=== PATIENT | female | born 1965 | race African-American/Black ===

== ENCOUNTER 2020-09-21 18:11 | Observation (INO) ==
[2020-09-21] MEDS ORDERED: SODIUM CHLORIDE 0.9% 1,000 ML IV STA (18:41)
[2020-09-21] MEDS ORDERED: ONDANSETRON 4 MG/2 ML VIAL IV STA (18:42)
[2020-09-21 19:09] LABS: Basophils % 0.5 % (0.0-0.8); Eosinophils % 1.1 % (0.00-10.9); Hematocrit 30.6 VOL% (35.7-47.0); Hemoglobin 9.8 GM/DL (12.0-16.0); Immature Granulocytes % 0.3 %; Immature Granulocytes Absolute 0.01 #; Lymphocytes # 1.6 10*3/uL (1.4-4.0); Lymphocytes % 44.5 % (21.3-54.2); Mean Platelet Volume 11.3 FL (9.6-12.0); Monocytes % 12.6 % (1.7-12.7); NRBC # 0.03 10*3/uL; Platelet Count 156 T/CUMM (130-400); White Blood Count 3.7 T/CUMM (4-12)
[2020-09-21 19:28] LABS: Albumin 3.1 G/DL (3.4-5.0); Bilirubin,Total 1.2 MG/DL (0.2-1.0); Calcium 9.4 MG/DL (8.5-10.1); Osmolality,Calculated 266.2 MOS/KG (273-304); Total Protein 6.6 G/DL (6.4-8.2)
[2020-09-21 19:31] LABS: Potassium 2.2 MMOL/L (3.5-5.1)
[2020-09-21] MEDS ORDERED: PROMETHAZINE INJ 25 MG in SODIUM CHLORIDE 0.9% 50 ML IV STA (19:37)
[2020-09-21] MEDS ORDERED: PROMETHAZINE 25 MG/1 ML VIAL ONE (19:39)
[2020-09-21 19:55] LABS: Anisocytosis 1+; Microcytosis Slight
[2020-09-21 19:56] LABS: Acanthocytes Few; Burr Cells Few; Ovalocytes Few; Platelet Estimate Normal
[2020-09-21] MEDS ORDERED: PROMETHAZINE 25 MG/1 ML VIAL IM PRN (20:09)
[2020-09-21] MEDS ORDERED: NICOTINE 21 MG/24 HR PATCH TRANSDERM PRN (20:09)
[2020-09-21] MEDS ORDERED: POTASSIUM CHLORIDE 20 MEQ TABLET PO STA (20:09)
[2020-09-21] MEDS ORDERED: guaiFENesin/DM ER 600-30 MG TABLET PO PRN (20:09)
[2020-09-21] MEDS ORDERED: GLUCAGON 1 MG VIAL IM PRN (20:09)
[2020-09-21] MEDS ORDERED: ONDANSETRON 4 MG/2 ML VIAL IV PRN (20:09)
[2020-09-21] MEDS ORDERED: DEXTROSE 50% 25 GM/50 ML VIAL IV PRN (20:09)
[2020-09-21] MEDS ORDERED: diphenhydrAMINE CAP 25 MG CAPSULE PO PRN (20:09)
[2020-09-21] MEDS ORDERED: ACETAMINOPHEN 325 MG TABLET PO PRN (20:09)
[2020-09-21] MEDS ORDERED: traZODone 50 MG TABLET PO PRN (20:09)
[2020-09-21] MEDS ORDERED: MORPHINE 4 MG/1 ML VIAL IV PRN (20:09)
[2020-09-21] MEDS ORDERED: hydrALAZINE 20 MG/1 ML VIAL IV PRN (20:09)
[2020-09-21] MEDS: SODIUM CHLOR 0.9% KCL 40 MEQ 40 MEQ/1,000 ML BAG IV SCH (23:03)
[2020-09-22 04:57] LABS: Calcium 8.2 MG/DL (8.5-10.1); Osmolality,Calculated 273.5 MOS/KG (273-304); Potassium 2.9 MMOL/L (3.5-5.1)
[2020-09-22] MEDS ORDERED: POTASSIUM CHLORIDE RIDER 10 MEQ in PREMIX 1 EACH IV PRN (08:37)
[2020-09-22 08:58] LABS: Calcium 8.4 MG/DL (8.5-10.1); Osmolality,Calculated 276.4 MOS/KG (273-304); Potassium 3.1 MMOL/L (3.5-5.1)
[2020-09-22] MEDS ORDERED: MAGNESIUM SULF RIDER 4 GM in PREMIX 1 EACH IV PRN (09:03)
[2020-09-22] MEDS ORDERED: MAGNESIUM SULF RIDER 2 GM in PREMIX 1 EACH IV PRN (09:03)
[2020-09-22] MEDS: POTASSIUM CHLORIDE RIDER 20 MEQ in PREMIX 1 EACH IV PRN ×2 (09:56→12:46)
[2020-09-22] MEDS ORDERED: FLUCONAZOLE INJ 200 MG in PREMIX 1 EACH IV ONE (10:02)
[2020-09-22 11:01] LABS: Bilirubin,Urine Small mg/dL (Negative); Blood, Urine Negative (Negative); Glucose,Urine (UA) Negative (Negative); Ketones,Urine 80 mg/dL (Negative); Mucus,Urine Many /LPF (Occasional); Nitrite,Urine Negative (Negative); Protein,Urine 100 MG/DL; RBC,Urine 1 /HPF (0-4); Squamous Epithelial Cell,Urine Occasional /HPF (0-10); Urine Appearance Slightly Hazy (Clear); Urine Color Amber (Yellow); Urine Specific Gravity 1.021 (1.001-1.035); WBC,Urine 2 /HPF (0-6)
[2020-09-22 14:10] LABS: Calcium 8.2 MG/DL (8.5-10.1); Osmolality,Calculated 276.7 MOS/KG (273-304); Potassium 3.3 MMOL/L (3.5-5.1)
[2020-09-22] MEDS: SODIUM CHLOR 0.9% KCL 40 MEQ 40 MEQ/1,000 ML BAG IV SCH ×2 (18:24→19:53)
[2020-09-23] MEDS: SODIUM CHLOR 0.9% KCL 40 MEQ 40 MEQ/1,000 ML BAG IV SCH (04:55)
[2020-09-23 07:35] VITALS: BP 102/72
[2020-09-23] MEDS ORDERED: HEPARIN LOCK FLUSH 500 UNIT/5 ML SYRINGE IV ONE (10:35)
== END 2020-09-23 13:03 | disposition home or self-care (01) ==
LOC: N.EDINP 18:11 → N.ED 18:11 → SUATTDRO 20:09 → N.4E 21:15
PROVIDERS: ADMIT Internal Medicine; ATTEND Student in an Organized Health Care Education/Training Program

== ENCOUNTER 2020-10-14 17:24 | Observation (INO) ==
[2020-10-14] MEDS ORDERED: SODIUM CHLORIDE 0.9% 1,000 ML IV STA ×3 (18:34→19:10)
[2020-10-14 18:52] LABS: Basophils % 0.1 % (0.0-0.8); Eosinophils % 0.2 % (0.00-10.9); Hematocrit 32.6 VOL% (35.7-47.0); Immature Granulocytes % 0.6 %; Immature Granulocytes Absolute 0.05 #; Lymphocytes # 2.3 10*3/uL (1.4-4.0); Lymphocytes % 25.9 % (21.3-54.2); Mean Corpuscular HGB Conc 30.7 GM/DL (32-36); Mean Corpuscular Volume 93.9 FL (87-102); Monocytes % 10.2 % (1.7-12.7); NRBC # 0.19 10*3/uL; Platelet Count 126 T/CUMM (130-400); Red Blood Count 3.47 MC/CUMM (3.8-5.5); Red Cell Distribution Width 24.1 % (9.3-17.3); White Blood Count 8.9 T/CUMM (4-12)
[2020-10-14 18:57] LABS: Albumin 3.3 G/DL (3.4-5.0); Bilirubin,Total 1.4 MG/DL (0.2-1.0); Calcium 9.7 MG/DL (8.5-10.1); Osmolality,Calculated 306.9 MOS/KG (273-304); Total Protein 6.5 G/DL (6.4-8.2)
[2020-10-14 18:58] LABS: INR 1.2; PT Patient Result 13.5 SECS (10.5-12.0)
[2020-10-14 19:07] LABS: Potassium 2.4 MMOL/L (3.5-5.1)
[2020-10-14] MEDS ORDERED: POTASSIUM CHLORIDE 20 MEQ TABLET PO ONE (19:08)
[2020-10-14] MEDS ORDERED: POTASSIUM CHLORIDE 20 MEQ PACK PO STA (19:10)
[2020-10-14] MEDS ORDERED: POTASSIUM CHLORIDE 20 MEQ PACK ONE (19:14)
[2020-10-14] MEDS ORDERED: POTASSIUM CHLORIDE RIDER 20 MEQ in PREMIX 1 EACH IV STA (19:25)
[2020-10-14] MEDS ORDERED: DEXTROSE 50% 25 GM/50 ML VIAL IV PRN (20:22)
[2020-10-14] MEDS ORDERED: GLUCAGON 1 MG VIAL IM PRN (20:22)
[2020-10-14] MEDS ORDERED: ONDANSETRON 4 MG/2 ML VIAL IV PRN (20:22)
[2020-10-14] MEDS ORDERED: DEXTROSE 5% 1,000 ML IV SCH (20:30)
[2020-10-14 21:53] LABS: Blood, Urine Small mg/dL (Negative); Glucose,Urine (UA) Negative (Negative); Hyaline Casts,Urine 58 /LPF (0-3); Ketones,Urine 5 mg/dL (Negative); Mucus,Urine Many /LPF (Occasional); Nitrite,Urine Negative (Negative); Protein,Urine 30 MG/DL; RBC,Urine 18 /HPF (0-4); Squamous Epithelial Cell,Urine Occasional /HPF (0-10); Urine Appearance Slightly Hazy (Clear); Urine Color Amber (Yellow); Urine Specific Gravity 1.032 (1.001-1.035)
[2020-10-14 21:55] LABS: Bilirubin,Urine Small mg/dL (Negative)
[2020-10-15 05:17] LABS: Folate 2.91 NG/ML (5.38-24.0)
[2020-10-15 06:17] LABS: Basophils % 0.2 % (0.0-0.8); Eosinophils # 0.1 10*3/uL (0.0-0.87); Eosinophils % 1.2 % (0.00-10.9); Hemoglobin 8.8 GM/DL (12.0-16.0); Immature Granulocytes % 0.8 %; Immature Granulocytes Absolute 0.05 #; Lymphocytes # 2.1 10*3/uL (1.4-4.0); Lymphocytes % 31.5 % (21.3-54.2); Mean Corpuscular HGB Conc 30.3 GM/DL (32-36); Mean Corpuscular Volume 95.4 FL (87-102); Mean Platelet Volume 12.2 FL (9.6-12.0); Monocytes % 8.8 % (1.7-12.7); NRBC # 0.04 10*3/uL; Neutrophils % 57.5 % (38.7-73.9); Platelet Count 114 T/CUMM (130-400); Red Blood Count 3.04 MC/CUMM (3.8-5.5); Red Cell Distribution Width 24.5 % (9.3-17.3); White Blood Count 6.6 T/CUMM (4-12)
[2020-10-15 06:54] LABS: Anisocytosis 2+; Platelet Estimate Adequate; Poikilocytosis 1+
[2020-10-15 06:55] LABS: Macrocytosis 1+; Ovalocytes Few; Polychromasia Slight; Tear Drop Cells Few
[2020-10-15 06:56] LABS: Albumin 2.7 G/DL (3.4-5.0); Bilirubin,Total 0.9 MG/DL (0.2-1.0); Calcium 9.2 MG/DL (8.5-10.1); Osmolality,Calculated 308.6 MOS/KG (273-304); Potassium 2.8 MMOL/L (3.5-5.1); Risk Ratio 4.43; Total Protein 5.9 G/DL (6.4-8.2); VLDL CHOLESTEROL 20.8 MG/DL
[2020-10-15] MEDS ORDERED: PROMETHAZINE 25 MG/1 ML VIAL IV PRN (07:45)
[2020-10-15] MEDS: FOLIC ACID 1 MG TABLET PO SCH ×2 (09:20→21:59)
[2020-10-15] MEDS: cefTRIAXone 1,000 MG in SODIUM CHLORIDE 0.9% 100 ML IV SCH (09:20)
[2020-10-15] MEDS: PANTOPRAZOLE 40 MG TABLET PO SCH (09:20)
[2020-10-15] MEDS: MEGESTROL 400 MG/10 ML UDCUP PO SCH (09:20)
[2020-10-15] MEDS: POTASSIUM CHLORIDE INJ 20 MEQ in LACTATED RINGERS 1,000 ML IV SCH ×3 (09:27→22:05)
[2020-10-15] MEDS: POTASSIUM CHLORIDE RIDER 10 MEQ in PREMIX 1 EACH IV PRN ×5 (10:30→16:45)
[2020-10-15] MEDS ORDERED: MAGNESIUM SULF RIDER 2 GM/50 ML PREMIX IV PRN (11:08)
[2020-10-15] MEDS ORDERED: MAGNESIUM SULF RIDER 4 GM/100 ML PREMIX IV PRN (11:08)
[2020-10-15] MEDS ORDERED: LACTATED RINGERS 500 ML IV ONE (13:41)
[2020-10-16] MEDS: POTASSIUM CHLORIDE RIDER 10 MEQ in PREMIX 1 EACH IV PRN ×4 (02:36→10:12)
[2020-10-16] MEDS: POTASSIUM CHLORIDE INJ 20 MEQ in LACTATED RINGERS 1,000 ML IV SCH ×2 (02:41→10:11)
[2020-10-16 06:01] LABS: Eosinophils # 0.1 10*3/uL (0.0-0.87); Eosinophils % 1.8 % (0.00-10.9); Hematocrit 24.9 VOL% (35.7-47.0); Hemoglobin 7.6 GM/DL (12.0-16.0); Immature Granulocytes Absolute 0.06 #; Lymphocytes # 2.3 10*3/uL (1.4-4.0); Lymphocytes % 37.7 % (21.3-54.2); Mean Corpuscular HGB Conc 30.5 GM/DL (32-36); Mean Platelet Volume 12.5 FL (9.6-12.0); Monocytes % 9.4 % (1.7-12.7); NRBC # 0.06 10*3/uL; Neutrophils % 50.1 % (38.7-73.9); Platelet Count 98 T/CUMM (130-400); Red Blood Count 2.62 MC/CUMM (3.8-5.5); Red Cell Distribution Width 24.4 % (9.3-17.3); White Blood Count 6.2 T/CUMM (4-12)
[2020-10-16 06:31] LABS: Calcium 8.3 MG/DL (8.5-10.1); Osmolality,Calculated 296.3 MOS/KG (273-304); Potassium 3.3 MMOL/L (3.5-5.1)
[2020-10-16 06:33] LABS: Hypochromasia 1+; Ovalocytes Few; Target Cells Slight
[2020-10-16 06:34] LABS: Anisocytosis 1+
[2020-10-16 06:35] LABS: Platelet Estimate Decreased
[2020-10-16] MEDS: PANTOPRAZOLE 40 MG TABLET PO SCH (10:11)
[2020-10-16] MEDS: MEGESTROL 400 MG/10 ML UDCUP PO SCH (10:11)
[2020-10-16] MEDS: FOLIC ACID 1 MG TABLET PO SCH (10:11)
[2020-10-16] MEDS: cefTRIAXone 1,000 MG in SODIUM CHLORIDE 0.9% 100 ML IV SCH (10:12)
[2020-10-16] MEDS ORDERED: POTASSIUM CHLORIDE 20 MEQ TABLET PO ONE (10:30)
[2020-10-16 11:05] VITALS: BP 117/70
== END 2020-10-16 16:30 | disposition home or self-care (01) ==
LOC: N.EDINP 17:24 → N.ED 17:24 → SUATTDRO 20:20 → N.3E 10-15 03:04
PROVIDERS: ADMIT Phlebology; ATTEND Internal Medicine

== ENCOUNTER 2021-01-08 23:25 | Inpatient (IN) ==
[2021-01-08] MEDS ORDERED: CEFEPIME 2,000 MG in SODIUM CHLORIDE 0.9% 100 ML IV STA (23:48)
[2021-01-08] MEDS ORDERED: SODIUM CHLORIDE 0.9% 1,000 ML IV STA (23:48)
[2021-01-09 00:46] LABS: PT Patient Result 11.6 SECS (10.5-12.0)
[2021-01-09 01:01] LABS: Basophils % 0.2 % (0.0-0.8); Eosinophils # 0.1 10*3/uL (0.0-0.87); Eosinophils % 0.9 % (0.00-10.9); Hematocrit 38.9 VOL% (35.7-47.0); Hemoglobin 12.2 GM/DL (12.0-16.0); Immature Granulocytes % 0.2 %; Immature Granulocytes Absolute 0.02 #; Lymphocytes % 22.1 % (21.3-54.2); Mean Corpuscular HGB Conc 31.4 GM/DL (32-36); Mean Corpuscular Volume 88.8 FL (87-102); Monocytes % 7.2 % (1.7-12.7); Neutrophils % 69.4 % (38.7-73.9); Platelet Count 105 T/CUMM (130-400); Red Blood Count 4.38 MC/CUMM (3.8-5.5); Red Cell Distribution Width 15.2 % (9.3-17.3)
[2021-01-09 01:08] LABS: Alanine Aminotransferase < 9 U/L (13-56); Albumin 2.9 G/DL (3.4-5.0); Alkaline Phosphatase 44 U/L (45-117); Aspartate Amino Transferase 11 U/L (0-37); Blood Urea Nitrogen 10 MG/DL (7-18); Carbon Dioxide 25 MMOL/L (21-32); Estimated Glom Filtration Rate 108 ML/MIN; Glucose 107 MG/DL (74-106); Osmolality,Calculated 275.5 MOS/KG (273-304); Potassium 3.4 MMOL/L (3.5-5.1); Sodium 139 MMOL/L (136-145); Total Protein 7.5 G/DL (6.4-8.2)
[2021-01-09 02:13] LABS: Bilirubin,Urine Negative (Negative); Blood, Urine Negative (Negative); Glucose,Urine (UA) Negative (Negative); Ketones,Urine Negative (Negative); Mucus,Urine Many /LPF (Occasional); Nitrite,Urine Negative (Negative); Protein,Urine Negative; RBC,Urine <1 /HPF (0-4); Urine Appearance Slightly Hazy (Clear); Urine Color Yellow (Yellow); Urine Specific Gravity 1.021 (1.001-1.035); Urine Urobilinogen < 2.0 EU/DL (0.2-1.0)
[2021-01-09] MEDS ORDERED: ENOXAPARIN 60 MG/0.6 ML SYRINGE SUBCUT ONE (02:29)
[2021-01-09] MEDS ORDERED: ONDANSETRON 4 MG/2 ML VIAL IV PRN (02:39)
[2021-01-09] MEDS ORDERED: ALBUTEROL/IPRATROPIUM 3 ML NEB RESP TX PRN (02:39)
[2021-01-09] MEDS ORDERED: guaiFENesin/DM ER 600-30 MG TABLET PO PRN (02:39)
[2021-01-09] MEDS ORDERED: NICOTINE 21 MG/24 HR PATCH TRANSDERM PRN (02:39)
[2021-01-09] MEDS ORDERED: GLUCAGON 1 MG VIAL IM PRN (02:39)
[2021-01-09] MEDS ORDERED: hydrALAZINE 20 MG/1 ML VIAL IV PRN (02:39)
[2021-01-09] MEDS ORDERED: DEXTROSE 50% 25 GM/50 ML VIAL IV PRN (02:39)
[2021-01-09] MEDS: MORPHINE 2 MG/1 ML SYRINGE IV PRN ×2 (05:15→11:41)
[2021-01-09] MEDS ORDERED: ENOXAPARIN 60 MG/0.6 ML SYRINGE SUBCUT SCH (15:00)
[2021-01-09] MEDS: APIXABAN 5 MG TABLET PO SCH (21:43)
[2021-01-10] MEDS: ACETAMINOPHEN 325 MG TABLET PO PRN (01:12)
[2021-01-10 07:34] LABS: Basophils % 0.2 % (0.0-0.8); Eosinophils % 0.4 % (0.00-10.9); Hematocrit 30.2 VOL% (35.7-47.0); Immature Granulocytes % 0.6 %; Immature Granulocytes Absolute 0.06 #; Lymphocytes # 2.1 10*3/uL (1.4-4.0); Lymphocytes % 20.2 % (21.3-54.2); Mean Corpuscular HGB Conc 31.8 GM/DL (32-36); Mean Corpuscular Volume 88.6 FL (87-102); Monocytes % 7.8 % (1.7-12.7); Neutrophils % 70.8 % (38.7-73.9); Red Cell Distribution Width 15.1 % (9.3-17.3); White Blood Count 10.4 T/CUMM (4-12)
[2021-01-10 07:35] LABS: Hemoglobin 9.6 GM/DL (12.0-16.0); Red Blood Count 3.41 MC/CUMM (3.8-5.5)
[2021-01-10 07:36] LABS: Platelet Count 97 T/CUMM (130-400)
[2021-01-10 07:51] LABS: Hypochromasia 1+
[2021-01-10 07:52] LABS: Microcytosis 1+; Ovalocytes Slight; Platelet Estimate Decreased
[2021-01-10 07:57] LABS: Ferritin 1593.3 ng/ml (8-252); Thyroid Stimulating Hormone 4.3 uIU/ml (0.358-3.74)
[2021-01-10 08:14] LABS: Folate 7.74 NG/ML (5.38-24.0); Vitamin B12 492 PG/ML (211-911)
[2021-01-10 08:39] LABS: Sedimentation Rate-Westergren 112 MM/HR (0-30)
[2021-01-10 09:50] LABS: Hemoglobin A1 (Alkaline) 97.1 % (96.5-98.5); Hemoglobin A2 (Alkaline) 2.9 % (1.5-3.5)
[2021-01-10] MEDS: MAGNESIUM CHLORIDE 64 MG TABLET PO SCH (10:26)
[2021-01-10] MEDS: PANTOPRAZOLE 40 MG TABLET PO SCH (10:26)
[2021-01-10] MEDS: APIXABAN 5 MG TABLET PO SCH ×2 (10:26→21:08)
[2021-01-10] MEDS: POTASSIUM CHLORIDE 20 MEQ TABLET PO PRN (13:19)
[2021-01-10] MEDS: VANCOMYCIN INJ 1,000 MG in SODIUM CHLORIDE 0.9% 250 ML IV SCH ×2 (13:19→23:21)
[2021-01-11] MEDS: ACETAMINOPHEN 325 MG TABLET PO PRN (04:20)
[2021-01-11 05:37] LABS: Basophils % 0.1 % (0.0-0.8); Eosinophils # 0.1 10*3/uL (0.0-0.87); Eosinophils % 0.8 % (0.00-10.9); Hematocrit 29.1 VOL% (35.7-47.0); Hemoglobin 9.4 GM/DL (12.0-16.0); Immature Granulocytes % 0.6 %; Immature Granulocytes Absolute 0.05 #; Lymphocytes # 1.9 10*3/uL (1.4-4.0); Lymphocytes % 21.8 % (21.3-54.2); Mean Corpuscular HGB Conc 32.3 GM/DL (32-36); Mean Corpuscular Volume 87.7 FL (87-102); Mean Platelet Volume 11.6 FL (9.6-12.0); Monocytes % 6.1 % (1.7-12.7); Neutrophils % 70.6 % (38.7-73.9); Platelet Count 121 T/CUMM (130-400); Red Blood Count 3.32 MC/CUMM (3.8-5.5); Red Cell Distribution Width 14.8 % (9.3-17.3); White Blood Count 8.7 T/CUMM (4-12)
[2021-01-11 06:10] LABS: Calcium 9.4 MG/DL (8.5-10.1); Osmolality,Calculated 270.8 MOS/KG (273-304); Potassium 3.1 MMOL/L (3.5-5.1)
[2021-01-11] MEDS: CHOLECALCIFEROL 1,000 UNIT TABLET PO SCH (09:46)
[2021-01-11] MEDS: PANTOPRAZOLE 40 MG TABLET PO SCH (09:46)
[2021-01-11] MEDS: POTASSIUM CHLORIDE 20 MEQ TABLET PO SCH ×2 (09:46→20:42)
[2021-01-11] MEDS: APIXABAN 5 MG TABLET PO SCH ×2 (09:46→20:42)
[2021-01-11] MEDS: MAGNESIUM CHLORIDE 64 MG TABLET PO SCH (09:46)
[2021-01-11] MEDS: POTASSIUM CHLORIDE 20 MEQ TABLET PO PRN (11:43)
[2021-01-11] MEDS: VANCOMYCIN INJ 1,000 MG in SODIUM CHLORIDE 0.9% 250 ML IV SCH ×2 (11:43→23:57)
[2021-01-11] MEDS: MORPHINE 2 MG/1 ML SYRINGE IV PRN (22:22)
[2021-01-12 05:22] LABS: Basophils % 0.5 % (0.0-0.8); Eosinophils # 0.1 10*3/uL (0.0-0.87); Eosinophils % 2.1 % (0.00-10.9); Hemoglobin 9.2 GM/DL (12.0-16.0); Immature Granulocytes % 0.5 %; Immature Granulocytes Absolute 0.03 #; Lymphocytes # 1.9 10*3/uL (1.4-4.0); Lymphocytes % 28.2 % (21.3-54.2); Mean Corpuscular HGB Conc 31.7 GM/DL (32-36); Mean Platelet Volume 10.6 FL (9.6-12.0); Neutrophils % 62.7 % (38.7-73.9); Platelet Count 142 T/CUMM (130-400); Red Blood Count 3.26 MC/CUMM (3.8-5.5); White Blood Count 6.6 T/CUMM (4-12)
[2021-01-12 05:45] LABS: Calcium 9.8 MG/DL (8.5-10.1); Potassium 3.9 MMOL/L (3.5-5.1)
[2021-01-12] MEDS: CHOLECALCIFEROL 1,000 UNIT TABLET PO SCH (10:12)
[2021-01-12] MEDS: MAGNESIUM CHLORIDE 64 MG TABLET PO SCH (10:12)
[2021-01-12] MEDS: PANTOPRAZOLE 40 MG TABLET PO SCH (10:12)
[2021-01-12] MEDS: POTASSIUM CHLORIDE 20 MEQ TABLET PO SCH ×2 (10:13→21:07)
[2021-01-12] MEDS: APIXABAN 5 MG TABLET PO SCH ×2 (10:13→21:08)
[2021-01-12 13:52] LABS: 25-Hydroxy D Total 14 ng/mL; 25-Hydroxy D2 < 4.0 ng/mL; 25-Hydroxy D3 14 ng/mL
[2021-01-12] MEDS: VANCOMYCIN INJ 1,000 MG in SODIUM CHLORIDE 0.9% 250 ML IV SCH (14:03)
[2021-01-12] MEDS: OXACILLIN 2,000 MG in SODIUM CHLORIDE 0.9% 100 ML IV SCH ×3 (14:48→21:19)
[2021-01-12] MEDS: MORPHINE 2 MG/1 ML SYRINGE IV PRN (21:08)
[2021-01-12] MEDS: diphenhydrAMINE CAP 25 MG CAPSULE PO PRN (21:08)
[2021-01-13] MEDS: OXACILLIN 2,000 MG in SODIUM CHLORIDE 0.9% 100 ML IV SCH ×6 (02:46→21:34)
[2021-01-13 05:47] LABS: Basophils % 0.3 % (0.0-0.8); Eosinophils # 0.2 10*3/uL (0.0-0.87); Eosinophils % 2.5 % (0.00-10.9); Hematocrit 30.4 VOL% (35.7-47.0); Hemoglobin 9.5 GM/DL (12.0-16.0); Immature Granulocytes % 0.3 %; Immature Granulocytes Absolute 0.02 #; Lymphocytes # 2.1 10*3/uL (1.4-4.0); Lymphocytes % 31.3 % (21.3-54.2); Mean Corpuscular HGB Conc 31.3 GM/DL (32-36); Mean Corpuscular Volume 89.4 FL (87-102); Mean Platelet Volume 10.5 FL (9.6-12.0); Monocytes % 5.6 % (1.7-12.7); Platelet Count 180 T/CUMM (130-400); Red Cell Distribution Width 15.1 % (9.3-17.3); White Blood Count 6.8 T/CUMM (4-12)
[2021-01-13 05:50] LABS: Calcium 10.1 MG/DL (8.5-10.1); Osmolality,Calculated 269.8 MOS/KG (273-304)
[2021-01-13] MEDS: PANTOPRAZOLE 40 MG TABLET PO SCH (09:20)
[2021-01-13] MEDS: MAGNESIUM CHLORIDE 64 MG TABLET PO SCH (09:20)
[2021-01-13] MEDS: APIXABAN 5 MG TABLET PO SCH ×2 (09:21→21:33)
[2021-01-13] MEDS: CHOLECALCIFEROL 1,000 UNIT TABLET PO SCH (09:21)
[2021-01-13] MEDS: POTASSIUM CHLORIDE 20 MEQ TABLET PO SCH ×2 (09:21→21:33)
[2021-01-13] MEDS: LUBIPROSTONE 8 MCG CAPSULE PO SCH ×2 (13:21→21:34)
[2021-01-13] MEDS: DOCUSATE SODIUM 100 MG CAPSULE PO SCH (21:34)
[2021-01-13] MEDS: POLYETHYLENE GLYCOL POWDER 17 GM PACK PO SCH (21:36)
[2021-01-14] MEDS: OXACILLIN 2,000 MG in SODIUM CHLORIDE 0.9% 100 ML IV SCH ×6 (02:38→21:11)
[2021-01-14 05:32] LABS: Basophils % 0.4 % (0.0-0.8); Eosinophils # 0.1 10*3/uL (0.0-0.87); Eosinophils % 1.9 % (0.00-10.9); Hematocrit 32.1 VOL% (35.7-47.0); Immature Granulocytes % 0.4 %; Immature Granulocytes Absolute 0.03 #; Lymphocytes # 1.9 10*3/uL (1.4-4.0); Lymphocytes % 27.7 % (21.3-54.2); Mean Corpuscular HGB Conc 31.2 GM/DL (32-36); Mean Corpuscular Volume 89.2 FL (87-102); Mean Platelet Volume 10.7 FL (9.6-12.0); Monocytes % 5.2 % (1.7-12.7); Neutrophils % 64.4 % (38.7-73.9); Platelet Count 209 T/CUMM (130-400); Red Cell Distribution Width 14.9 % (9.3-17.3); White Blood Count 6.8 T/CUMM (4-12)
[2021-01-14 05:54] LABS: Calcium 10.4 MG/DL (8.5-10.1); Osmolality,Calculated 265.1 MOS/KG (273-304); Potassium 4.4 MMOL/L (3.5-5.1)
[2021-01-14] MEDS: MAGNESIUM CHLORIDE 64 MG TABLET PO SCH (09:34)
[2021-01-14] MEDS: POTASSIUM CHLORIDE 20 MEQ TABLET PO SCH (09:35)
[2021-01-14] MEDS: CHOLECALCIFEROL 1,000 UNIT TABLET PO SCH (09:35)
[2021-01-14] MEDS: PANTOPRAZOLE 40 MG TABLET PO SCH (09:35)
[2021-01-14] MEDS: APIXABAN 5 MG TABLET PO SCH ×2 (09:35→21:14)
[2021-01-14] MEDS: LUBIPROSTONE 8 MCG CAPSULE PO SCH (09:35)
[2021-01-14] MEDS: LINACLOTIDE 145 MCG CAPSULE PO SCH (09:36)
[2021-01-14] MEDS: DOCUSATE SODIUM 100 MG CAPSULE PO SCH ×2 (09:36→21:10)
[2021-01-14] MEDS: POLYETHYLENE GLYCOL POWDER 17 GM PACK PO SCH ×2 (09:36→21:11)
[2021-01-14] MEDS ORDERED: MAGNESIUM CITRATE 300 ML BOTTLE PO ONE (16:12)
[2021-01-14] MEDS: ACETAMINOPHEN 325 MG TABLET PO PRN (16:56)
[2021-01-14] MEDS: LUBIPROSTONE 24 MCG CAPSULE PO SCH (21:10)
[2021-01-14] MEDS: diphenhydrAMINE CAP 25 MG CAPSULE PO PRN (21:14)
[2021-01-15] MEDS: OXACILLIN 2,000 MG in SODIUM CHLORIDE 0.9% 100 ML IV SCH ×6 (01:33→22:56)
[2021-01-15 04:24] LABS: Basophils % 0.3 % (0.0-0.8); Eosinophils # 0.1 10*3/uL (0.0-0.87); Eosinophils % 1.8 % (0.00-10.9); Hematocrit 32.6 VOL% (35.7-47.0); Hemoglobin 10.3 GM/DL (12.0-16.0); Immature Granulocytes % 0.4 %; Immature Granulocytes Absolute 0.03 #; Lymphocytes % 26.5 % (21.3-54.2); Mean Corpuscular HGB Conc 31.6 GM/DL (32-36); Mean Corpuscular Volume 88.3 FL (87-102); Mean Platelet Volume 10.5 FL (9.6-12.0); Monocytes % 6.7 % (1.7-12.7); Neutrophils % 64.3 % (38.7-73.9); Platelet Count 240 T/CUMM (130-400); Red Blood Count 3.69 MC/CUMM (3.8-5.5); Red Cell Distribution Width 14.9 % (9.3-17.3); White Blood Count 7.6 T/CUMM (4-12)
[2021-01-15 04:47] LABS: Calcium 10.3 MG/DL (8.5-10.1); Osmolality,Calculated 275.7 MOS/KG (273-304); Potassium 3.2 MMOL/L (3.5-5.1)
[2021-01-15] MEDS ORDERED: POTASSIUM CHLORIDE 20 MEQ TABLET PO SCH (09:00)
[2021-01-15] MEDS: LUBIPROSTONE 24 MCG CAPSULE PO SCH ×2 (10:04→21:32)
[2021-01-15] MEDS: MAGNESIUM CHLORIDE 64 MG TABLET PO SCH (10:05)
[2021-01-15] MEDS: DOCUSATE SODIUM 100 MG CAPSULE PO SCH ×2 (10:05→21:32)
[2021-01-15] MEDS: CHOLECALCIFEROL 1,000 UNIT TABLET PO SCH (10:05)
[2021-01-15] MEDS: POTASSIUM CHLORIDE 20 MEQ TABLET PO SCH (10:05)
[2021-01-15] MEDS: POLYETHYLENE GLYCOL POWDER 17 GM PACK PO SCH ×2 (10:06→21:32)
[2021-01-15] MEDS: APIXABAN 5 MG TABLET PO SCH ×2 (10:06→21:31)
[2021-01-15] MEDS: PANTOPRAZOLE 40 MG TABLET PO SCH (10:06)
[2021-01-15] MEDS: LINACLOTIDE 145 MCG CAPSULE PO SCH (10:06)
[2021-01-15] MEDS: ACETAMINOPHEN 325 MG TABLET PO PRN (23:26)
[2021-01-16] MEDS: OXACILLIN 2,000 MG in SODIUM CHLORIDE 0.9% 100 ML IV SCH ×6 (01:20→23:53)
[2021-01-16] MEDS: diphenhydrAMINE CAP 25 MG CAPSULE PO PRN (01:21)
[2021-01-16 05:44] LABS: Basophils % 0.2 % (0.0-0.8); Eosinophils # 0.2 10*3/uL (0.0-0.87); Eosinophils % 2.7 % (0.00-10.9); Hematocrit 31.6 VOL% (35.7-47.0); Hemoglobin 9.9 GM/DL (12.0-16.0); Immature Granulocytes % 1.5 %; Immature Granulocytes Absolute 0.13 #; Lymphocytes # 2.7 10*3/uL (1.4-4.0); Mean Corpuscular HGB Conc 31.3 GM/DL (32-36); Mean Corpuscular Volume 89.3 FL (87-102); Mean Platelet Volume 10.6 FL (9.6-12.0); Monocytes % 5.9 % (1.7-12.7); Neutrophils % 57.7 % (38.7-73.9); Platelet Count 254 T/CUMM (130-400); Red Blood Count 3.54 MC/CUMM (3.8-5.5); Red Cell Distribution Width 15.2 % (9.3-17.3); White Blood Count 8.5 T/CUMM (4-12)
[2021-01-16 06:06] LABS: Calcium 9.9 MG/DL (8.5-10.1); Osmolality,Calculated 277.4 MOS/KG (273-304); Potassium 3.1 MMOL/L (3.5-5.1)
[2021-01-16] MEDS: LINACLOTIDE 145 MCG CAPSULE PO SCH ×2 (06:14→07:20)
[2021-01-16] MEDS: APIXABAN 5 MG TABLET PO SCH ×2 (09:49→21:12)
[2021-01-16] MEDS: CHOLECALCIFEROL 1,000 UNIT TABLET PO SCH (09:49)
[2021-01-16] MEDS: POTASSIUM CHLORIDE 20 MEQ TABLET PO SCH ×2 (09:49→21:13)
[2021-01-16] MEDS: PANTOPRAZOLE 40 MG TABLET PO SCH (09:49)
[2021-01-16] MEDS: MAGNESIUM CHLORIDE 64 MG TABLET PO SCH (09:49)
[2021-01-16] MEDS: LUBIPROSTONE 24 MCG CAPSULE PO SCH ×2 (09:49→21:11)
[2021-01-16] MEDS: POLYETHYLENE GLYCOL POWDER 17 GM PACK PO SCH (09:50)
[2021-01-16] MEDS: DOCUSATE SODIUM 100 MG CAPSULE PO SCH ×2 (09:50→21:11)
[2021-01-16] MEDS: POTASSIUM CHLORIDE 20 MEQ TABLET PO PRN (14:18)
[2021-01-16] MEDS: DONEPEZIL 5 MG TABLET PO SCH (21:12)
[2021-01-17] MEDS: diphenhydrAMINE CAP 25 MG CAPSULE PO PRN ×2 (00:33→20:48)
[2021-01-17] MEDS: OXACILLIN 2,000 MG in SODIUM CHLORIDE 0.9% 100 ML IV SCH ×6 (03:07→22:13)
[2021-01-17] MEDS ORDERED: HEPARIN LOCK FLUSH 500 UNIT/5 ML SYRINGE IV PRN (09:52)
[2021-01-17] MEDS: LINACLOTIDE 145 MCG CAPSULE PO SCH (10:21)
[2021-01-17] MEDS: DOCUSATE SODIUM 100 MG CAPSULE PO SCH ×2 (10:22→20:48)
[2021-01-17] MEDS: LUBIPROSTONE 24 MCG CAPSULE PO SCH (10:22)
[2021-01-17] MEDS: MAGNESIUM CHLORIDE 64 MG TABLET PO SCH (10:23)
[2021-01-17] MEDS: APIXABAN 5 MG TABLET PO SCH ×2 (10:23→20:44)
[2021-01-17] MEDS: POTASSIUM CHLORIDE 20 MEQ TABLET PO SCH ×2 (10:25→20:44)
[2021-01-17] MEDS: CHOLECALCIFEROL 1,000 UNIT TABLET PO SCH (10:25)
[2021-01-17] MEDS: PANTOPRAZOLE 40 MG TABLET PO SCH (10:25)
[2021-01-17] MEDS: HEPARIN LOCK FLUSH 500 UNIT/5 ML SYRINGE IV SCH (20:44)
[2021-01-17] MEDS: DONEPEZIL 5 MG TABLET PO SCH (20:44)
[2021-01-18] MEDS: OXACILLIN 2,000 MG in SODIUM CHLORIDE 0.9% 100 ML IV SCH ×6 (02:03→21:24)
[2021-01-18] MEDS: CHOLECALCIFEROL 1,000 UNIT TABLET PO SCH (09:36)
[2021-01-18] MEDS: POTASSIUM CHLORIDE 20 MEQ TABLET PO SCH ×2 (09:36→21:24)
[2021-01-18] MEDS: APIXABAN 5 MG TABLET PO SCH ×2 (09:36→21:24)
[2021-01-18] MEDS: MAGNESIUM CHLORIDE 64 MG TABLET PO SCH (09:37)
[2021-01-18] MEDS: DOCUSATE SODIUM 100 MG CAPSULE PO SCH ×2 (09:37→21:24)
[2021-01-18] MEDS: PANTOPRAZOLE 40 MG TABLET PO SCH (09:37)
[2021-01-18] MEDS: HEPARIN LOCK FLUSH 500 UNIT/5 ML SYRINGE IV SCH ×2 (09:37→21:33)
[2021-01-18] MEDS: ACETAMINOPHEN 325 MG TABLET PO PRN (18:09)
[2021-01-18] MEDS: DONEPEZIL 5 MG TABLET PO SCH (21:24)
[2021-01-19] MEDS: OXACILLIN 2,000 MG in SODIUM CHLORIDE 0.9% 100 ML IV SCH ×4 (02:11→14:24)
[2021-01-19] MEDS: diphenhydrAMINE CAP 25 MG CAPSULE PO PRN (02:11)
[2021-01-19] MEDS: PANTOPRAZOLE 40 MG TABLET PO SCH (08:18)
[2021-01-19] MEDS: APIXABAN 5 MG TABLET PO SCH (08:18)
[2021-01-19] MEDS: CHOLECALCIFEROL 1,000 UNIT TABLET PO SCH (08:18)
[2021-01-19] MEDS: HEPARIN LOCK FLUSH 500 UNIT/5 ML SYRINGE IV SCH (08:18)
[2021-01-19] MEDS: POTASSIUM CHLORIDE 20 MEQ TABLET PO SCH (08:19)
[2021-01-19] MEDS: DOCUSATE SODIUM 100 MG CAPSULE PO SCH (08:19)
[2021-01-19] MEDS: MAGNESIUM CHLORIDE 64 MG TABLET PO SCH (08:19)
[2021-01-19 16:00] VITALS: BP 94/66
== END 2021-01-19 16:14 | disposition hospice, home (50) | DRG 134 ==
LOC: EDUNIT# → EDBD → N.EDINP 23:25 → N.ED 23:25 → SUATTDRO 01-09 02:39 → N.4E 01-09 03:04 → N.5E 01-16 16:06
PROVIDERS: ADMIT Hospitalist; ATTEND Hospitalist